=== PATIENT | female | born 1960 | race Caucasian/White ===

== ENCOUNTER 2021-01-27 09:46 | Outpatient (REF) | payer BC, SELFPAY ==
--- NOTE | 2021-01-27 08:30 | PAPFT_PTH ---
PATIENT: Mesha Figueroa LOC: [facility]#:[id number] AGE/SX: 61/F ROOM: RE01/27/[address]: Casandra Young : 1960 BED: DIS: 01/27/2021 SPEC #: [id number] RECD: 01/27/21 13:14 STATUS: ROMA ARMANDO #: [id number] STORM: 01/27/21 08:[address]: Casandra Young DEPT: [facility] Cytology RECD BY: Veda Miramontes ENTERED: 01/27/21 13:14 SP TYPE: PAPFT OTHR DR: Alyssa Ramachandran Tissues: 1 - CX/ENDOCX FOR PAP SMEARS Procedures: PAP THIN PREP/[facility] Screening HPV DNA PROBE Comments: [id number]
[2021-01-27 14:40] LABS: ALT 23 U/L (14-59); AST 16 U/L (15-37); Calculated LDL 108 mg/dL (<100); Cholesterol 196 mg/dL (<200); HDL Cholesterol 48 mg/dL (40-60); Triglyceride 201 mg/dL (<150)
== END 2021-01-27 09:47 | disposition home or self-care (01) ==
LOC: NCHCN 09:46
PROVIDERS: PCP Nurse Practitioner Family; Visit Provider Nurse Practitioner Family
DX: E78.5 Hyperlipidemia, unspecified (principal); Z00.00 Encounter for general adult medical examination without abnormal findings; Z12.4 Encounter for screening for malignant neoplasm of cervix; Z01.419 Encounter for gynecological examination (general) (routine) without abnormal findings; Z11.51 Encounter for screening for human papillomavirus (HPV)
CPT/HCPCS: 80061; 88142; 84450; 84460; 87624

== ENCOUNTER 2022-01-26 14:47 | Outpatient (REF) | payer BC, SELFPAY ==
[2022-01-26 15:43] LABS: HCT 43.6 % (36.0-46.0); HGB 14.5 g/dL (11.2-15.7); MCH 30.5 pg (27.0-33.0); MCHC 33.3 % (32.0-36.0); MCV 92 fL (80-95); MPV 11.1 fL (8.0-11.0); Platelet Count 281 10^3/uL (130-400); RBC 4.75 10^6/uL (3.93-5.22); RDW 12.3 % (11.7-14.6); RDW-SD 41.8 fL; WBC 7.12 10^3/uL (4.4-10.8)
[2022-01-26 15:56] LABS: ALT 29 U/L (14-59); AST 19 U/L (15-37); Albumin 3.6 g/dL (3.4-5.0); Alkaline Phosphatase 63 U/L (46-116); Anion Gap 8.6 mmol/L (3-11); BUN 13 mg/dL (7-18); Bilirubin, Total 0.4 mg/dL (0.2-1.0); CO2 26.4 mmol/L (21.0-32.0); CREATININE 0.9 mg/dL (0.55-1.02); Calcium 8.7 mg/dL (8.5-10.1); Chloride 106 mmol/L (98-107); Glucose 99 mg/dL (74-106); Potassium 4.5 mmol/L (3.5-5.1); Sodium 141 mmol/L (136-145); Total Protein 7.1 g/dL (6.4-8.2)
== END 2022-01-26 14:48 | disposition home or self-care (01) ==
LOC: NCHCN 14:47
PROVIDERS: PCP Nurse Practitioner Family; Visit Provider Nurse Practitioner Family
DX: Z00.00 Encounter for general adult medical examination without abnormal findings (principal); Z12.11 Encounter for screening for malignant neoplasm of colon
CPT/HCPCS: 80053; 85027

== ENCOUNTER 2023-03-07 21:04 | Outpatient (REF) | payer BC, SELFPAY ==
[2023-03-07 21:24] LABS: ALT 35 U/L (14-59); AST 20 U/L (15-37); Albumin 3.7 g/dL (3.4-5.0); Alkaline Phosphatase 68 U/L (46-116); Anion Gap 6.7 mmol/L (3-11); BUN 13 mg/dL (7-18); Bilirubin, Total 0.4 mg/dL (0.2-1.0); CO2 30.3 mmol/L (21.0-32.0); CREATININE 0.9 mg/dL (0.55-1.02); Calcium 8.7 mg/dL (8.5-10.1); Chloride 103 mmol/L (98-107); Estimated GFR 71.83 (mL/min/1.73m2); Glucose 112 mg/dL (74-106); HCT 43.6 % (36.0-46.0); HGB 14.5 g/dL (11.2-15.7); MCH 30.7 pg (27.0-33.0); MCHC 33.3 % (32.0-36.0); MCV 92 fL (80-95); MPV 11.3 fL (8.0-11.0); Platelet Count 290 10^3/uL (130-400); Potassium 3.7 mmol/L (3.5-5.1); RBC 4.72 10^6/uL (3.93-5.22); RDW 12.4 % (11.7-14.6); RDW-SD 42.9 fL; Sodium 140 mmol/L (136-145); Total Protein 7.4 g/dL (6.4-8.2); WBC 6.86 10^3/uL (4.4-10.8)
== END 2023-03-07 21:05 | disposition home or self-care (01) ==
LOC: NCHCN 21:04
PROVIDERS: PCP Nurse Practitioner Family; Visit Provider Nurse Practitioner Family
DX: Z00.00 Encounter for general adult medical examination without abnormal findings (principal)
CPT/HCPCS: 80053; 85027

== ENCOUNTER 2024-03-14 21:14 | Outpatient (REF) | payer BC, SELFPAY ==
[2024-03-14 14:18] LABS: HCT 44.2 % (36.0-46.0); HGB 14.7 g/dL (11.2-15.7); MCH 31.4 pg (27.0-33.0); MCHC 33.3 % (32.0-36.0); MCV 94 fL (80-95); MPV 10.9 fL (8.0-11.0); Platelet Count 294 10^3/uL (130-400); RBC 4.68 10^6/uL (3.93-5.22); RDW 12.4 % (11.7-14.6); RDW-SD 42.9 fL; WBC 6.37 10^3/uL (4.4-10.8)
[2024-03-14 14:32] LABS: ALT 30 U/L (14-59); AST 17 U/L (15-37); Albumin 3.7 g/dL (3.4-5.0); Alkaline Phosphatase 65 U/L (46-116); BUN 18 mg/dL (7-18); Bilirubin, Total 0.38 mg/dL (0.2-1.0); CREATININE 0.9 mg/dL (0.55-1.02); Calcium 8.7 mg/dL (8.5-10.1); Calculated LDL 123 mg/dL (<100); Chloride 106 mmol/L (98-107); Cholesterol 203 mg/dL (<200); Estimated GFR 71.39 (mL/min/1.73m2); Glucose 105 mg/dL (74-106); HDL Cholesterol 55 mg/dL (40-60); Potassium 4.1 mmol/L (3.5-5.1); Sodium 141 mmol/L (136-145); Total Protein 6.9 g/dL (6.4-8.2); Triglyceride 129 mg/dL (<150)
[2024-03-14 14:41] LABS: Hemoglobin A1C 5.5 % (<5.7); Magnesium 2.2 mg/dL (1.8-2.4)
--- OUTSIDE RECORDS SUMMARY | 2024-03-14 21:15 | XMS_ITS | Encounter Summary ---
Author Organization [facility] Address [address] [place] [address] Care Team Providers Care Health Inspector Name Role Phone Unavailable Primary Care Provider Unavailabl e Encounter Details Date Type Department Care Team (Late st Contact Info) Description 12/29/2005 Results Only [facility] - Maple conversion [address] [place] [address] Stephanie Perea PA-C [address] [place] [address] Social History Tobacco Use Types Packs/Day Years Used Date Smoking Tobacco: Never Assessed Sex and Gender Information Value Date Recorded Sex Assigned at Not on file Gender Identity Not on file Sexual Orientation Not on file documented as of this encounter Plan of Treatment Not on file documented as of this encounter Procedures Procedure Name Priority Date/Time Associated Diagnosis Comments CYTOPATHOLOGY Routine 12/29/2005 0:00 EDT documented in this encounter Results * CYTOPATHOLOGY (12/29/2005 0:00 EDT) Pathology Report: CYTOPATHOLOGY REPORT Reports generated via electronic interface contain original data; however they are lacking the format of the original report. Caution should be taken when reading/interpreti ng unformatted reports. Name: ? MESHA FIGUEROA ? Accession #: ? [id number] : ? 1960 (Age: 45) ??F ?Collect Date: ? 12/29/2005 Location: ? [facility] ? Receive Date: ? 01/04/2006 Provider: ?STEPHANIE MAGALLON Copy to: ? Specimen/Source: ?ThinPrep Pap Test, Cervix/Endocervix, processed on [employer] ThinPrep Imaging System, with manual evaluation Last Menstrual Period: ? 12/13/05 Previous Gynecologic Pathology: ? Yes: x 1 Other: ? HPVA - HPV testing requested if ASC-US on the current ThinPrep Pap test. ? SPECIMEN ADEQUACY ? Satisfactory for Evaluation - transformation zone component present GENERAL CATEGORIZATION ? Negative for Intraepithelial Lesion or Malignancy ? Document reviewed and electronically signed by: ? Autumn Breaux, GINA(ASCP) ? Report Date: ??01/09/2006 14:51 End of Report CATHIE DE PAZ 12/29/2005 01/04/2006 Stephanie Perea PA-C PATHOLOGY [facility] [address] [place] [address] documented in this encounter Visit Diagnoses Not on filedocumented in this encounter
--- OUTSIDE RECORDS SUMMARY | 2024-03-14 21:15 | XMS_ITS | Continuity of Care Document ---
Author Organization [facility] Address [address] [place] [address] Care Team Providers Care Appliance Installer Name Role Phone BEBETO JACOBSEN Primary Care Physician Encounter [facility] FIN NBR [id number] Date(s): 03/22/23 - 03/22/[address] [address] [place] Encounter Diagnosis Encounter for screening mammogram for malignant neoplasm of breast(Final) - Discharge Disposition: Home or Self Care Attending Physician: BEBETO JACOBSEN Admitting Physician: BEBETO JACOBSEN Referring Physician: BEBETO JACOBSEN Results Radiology Reports * Exam Date Time Procedure Performing Provider Status 03/22/23 8:13 AM MG Mammo Screening Bilateral Mikey, Luístine; Auth (Verified) Notes: (MG Mammo Screening Bilateral) Reason For Exam: SCREENING MG Mammo Screening Bilateral EXAM DESCRIPTION: MG Mammo Screening Bilateral 03/22/2023 INDICATION: SCREENING RISK FACTOR: The patient may be at increased breast cancer risk based on 1 or more risk factors COMPARISON: 03/15/2022 and 03/23/2021 BREAST DENSITY: There are scattered areas of fibroglandular density. FINDINGS: MLO and CC views were performed with digital breast tomosynthesis. Images were reviewed using computer aided detection. No asymmetry, architectural distortion or suspicious grouping of calcifications to suggest malignancy in either breast. ASSESSMENT: No mammographic evidence of malignancy. Negative. BI-RADS category 1. RECOMMENDATION: Screening mammography in 1 year JOB #: [id number] Final Signed by: Jose Albert MD Signed (Electronic Signature): 03/22/2023 8:39 am Patient Care team information Care Team Personnel Name: BEBETO JACOBSEN Position: No Access Member Role: Primary Care Physician Address: Address: [facility] [address] [place], [place] [address]
--- OUTSIDE RECORDS SUMMARY | 2024-03-14 21:15 | XMS_ITS | Encounter Summary ---
Author Organization [facility] Address [address] [place] [address] Care Team Providers Care Carnallite Plant Operator Name Role Phone Unavailable Primary Care Provider Unavailabl e Encounter Details Date Type Department Care Team (Late st Contact Info) Description 03/07/2012 Results Only [facility] Services - [facility] ([facility]) [address], [place] [address] Vic De Santiago FNP [address] [place], [place] [address] Social History Tobacco Use Types Packs/Day Years Used Date Smoking Tobacco: Never Assessed Sex and Gender Information Value Date Recorded Sex Assigned at Not on file Gender Identity Not on file Sexual Orientation Not on file documented as of this encounter Plan of Treatment Not on file documented as of this encounter Procedures Procedure Name Priority Date/Time Associated Diagnosis Comments PAP TEST- RESULT ONLY Routine 03/07/2012 0:00 EDT documented in this encounter Results * PAP TEST- RESULT ONLY (03/07/2012 0:00 EDT) Pathology Report: CYTOPATHOLOGY REPORT Reports generated via electronic interface contain original data; however they are lacking the format of the original report. Caution should be taken when reading/interpreti ng unformatted reports. Name: ? MESHA FIGUEROA ? Accession #: ? [id number] : ? 1960 (Age: 52) ??F ?Collect Date: ? 03/07/2012 Location: ? [facility] ? Receive Date: ? 03/08/2012 Provider: ?VIC DE SANTIAGO PROCESS MECHANIC Copy to: ? Specimen/Source: ?Pap Test, Cervix/Endocervix, ThinPrep Imaging System with manual evaluation Last Menstrual Period: ? 06/2011 ? SPECIMEN ADEQUACY ? Satisfactory for Evaluation - transformation zone component present GENERAL CATEGORIZATION ? Negative for Intraepithelial Lesion or Malignancy INTERPRETATION ? Reactive cellular changes associated with inflammation present (includes repair). ? Document reviewed and electronically signed by: ? SISSY CHAUDHRY MD ? Report Date: ??03/15/2012 15:49 End of Report CATHIE DE PAZ 03/07/2012 03/08/2012 Vic De Santiago PROCESS MECHANIC PATHOLOGY ORDERABLES CATHIE DE PAZ [address] [place] [address] documented in this encounter Visit Diagnoses Not on filedocumented in this encounter
--- OUTSIDE RECORDS SUMMARY | 2024-03-14 21:15 | XMS_ITS | Encounter Summary ---
Author Organization [facility] Address [address] [place] [address] Care Team Providers Care Roll Up Helper Name Role Phone Mary Ellen Daniel MD Primary Care Provider [phone] Reason for Visit * Reason Onset Date Comments Other 06/22/2015 Encounter Details Date Type Department Care Team (Late st Contact Info) Description 06/22/2015 Telephone [facility] Neurology - [address] [place] [address] Tarsha Bates [address] [place] [address] Other Social History Tobacco Use Types Packs/Day Years Used Date Smoking Tobacco: Never Assessed Sex and Gender Information Value Date Recorded Sex Assigned at Not on file Gender Identity Not on file Sexual Orientation Not on file documented as of this encounter Miscellaneous Notes * Telephone Encounter - Elin Brewer - 09/04/2015 0931 EST error documented in this encounter Plan of Treatment Not on file documented as of this encounter Visit Diagnoses Not on filedocumented in this encounter Care Teams Roll Up Helper Relationship Specialty Start Date End Date Mary Ellen Daniel MD [address] [place] [address] PCP - General 05/12/15 documented as of this encounter
--- OUTSIDE RECORDS SUMMARY | 2024-03-14 21:15 | XMS_ITS | Encounter Summary ---
Author Organization [facility] Address [address] [place] [address] Care Team Providers Care Buckle Coverer Name Role Phone Mary Ellen Daniel MD Primary Care Provider [phone] Encounter Details Date Type Department Care Team (Late st Contact Info) Description 01/19/2016 Results Only [facility] [phone] Cesia Manriquez, MOTOR VEHICLE EXAMINER [address] [facility] [address] [place] [address] Social History Tobacco Use Types Packs/Day Years [...] Diagnosis Comments PAP TEST- RESULT ONLY Routine 01/19/2016 0:00 EDT documented in this encounter Results * PAP TEST- RESULT ONLY (01/19/2016 0:00 EDT) Pathology Report: CYTOPATHOLOGY REPORT Reports generated via electronic interface contain original data; however they are lacking the format of the original report. Caution should be taken when reading/interpreti ng unformatted reports. Name: ? MESHA FIGUEROA ? Accession #: ? [id number] ? : ? 1960 (Age: 55) ??F ?Collect Date: ? 01/19/2016 ? Location: ? [facility] ? Receive Date: ? 01/20/2016 ? Provider: CESIA MANRIQUEZ MOTOR VEHICLE EXAMINER Copy to: ? Final Report SPECIMEN ADEQUACY ? Satisfactory for Evaluation - transformation zone component present GENERAL CATEGORIZATION ? Negative for Intraepithelial Lesion or Malignancy ?? Menstrual/Pregnanc y Status: ??Post Menopausal Hormonal/Contracep tive status: None Other: Additional clinical information: Remote hx - does not recall Specimen/Source: ??Pap Test, Cervix/Endocervix, ThinPrep Imaging System with manual evaluation Document reviewed and electronically signed by: ? GINA Rasmussen(ASCP) ? Report ??Date: 02/01/2016 08:38 HPV with Pap Test ? Date Ordered: ? 02/01/2016 ? Status: ?? Signed Out ?Date Complete: ? 02/03/2016 ? By: ??System Interface ? Date Reported: ? 02/03/2016 ? Interpretation RESULT: Negative for HPV. No E6 or E7 mRNA is detected from HPV types 16,18,31,33,35, 39,45,51,52,56,58, 59,66, and 68 by assistant professor of archaeology mediated amplification. Comments Document reviewed and electronically signed by: ? System Interface ? Report date: 02/03/2016 By the signature above, the attending physician certifies that he/she has personally conducted a gross and/or microscopic examination of the described specimens and rendered or confirmed the above diagnosis. End of Report [facility] 01/19/2016 01/20/2016 Cesia Manriquez APRN PATHOLOGY ORDERAB LES [facility] [address] [place] [address] documented in this encounter Visit Diagnoses Not on filedocumented in this encounter Care Teams Buckle Coverer Relationship Specialty Start Date End Date Mary Ellen Daniel MD [address] [place] [address] PCP - General 05/12/15 documented as of this encounter
--- OUTSIDE RECORDS SUMMARY | 2024-03-14 21:15 | XMS_ITS | Encounter Summary ---
Author Organization [facility] Address [address] [place] [address] Care Team Providers Care Night Cleaner Name Role Phone Unavailable Primary Care Provider Unavailabl e Encounter Details Date Type Department Care Team (Late st Contact Info) Description 08/15/2002 Results Only [facility] - Maple conversion [address] [place] [address] Vic De Santiago FNP [address] [place], [place] [id number] Social History Tobacco Use Types Packs/Day Years Used Date Smoking Tobacco: Never Assessed Sex and Gender Information Value Date Recorded Sex Assigned at Not on file Gender Identity Not on file Sexual Orientation Not on file documented as of this encounter Plan of Treatment Not on file documented as of this encounter Procedures Procedure Name Priority Date/Time Associated Diagnosis Comments CYTOPATHOLOGY Routine 08/15/2002 0:00 EST documented in this encounter Results * CYTOPATHOLOGY (08/15/2002 0:00 EST) Pathology Report: CYTOPATHOLOGY REPORT Reports generated via electronic interface contain original data; however they are lacking the format of the original report. Caution should be taken when reading/interpreti ng unformatted reports. Name: ? MESHA FIGUEROA ? Accession #: ? [id number] : ? 1960 (Age: 42) ??F ?Collect Date: ? 08/15/2002 Location: ? [facility] ? Receive Date: ? 08/19/2002 Provider: ?VIC DE SANTIAGO MANAGED CARE SPECIALIST Copy to: ? Specimen/Source: ?ThinPrep Pap Test, Cervix/Endocervix Last Menstrual Period: ? 07/26/02 Previous Gynecologic Pathology: ? Yes: 1994, normal since Other: ? HPVA - HPV testing requested if ASC-US on the current ThinPrep Pap test. ? SPECIMEN ADEQUACY ? Satisfactory for Evaluation - transformation zone component present GENERAL CATEGORIZATION ? Negative for Intraepithelial Lesion or Malignancy INTERPRETATION ? Shift in saad present suggestive of bacterial vaginosis. ? Document reviewed and electronically signed by: ? Alicia Holloway, SCT(ASCP) ? Report Date: ??08/20/2002 11:35 End of Report CATHIE DE PAZ 08/15/2002 08/19/2002 Vic NELSONP PATHOLOGY ORDERABLES Performing Organization Address City/State/[facility] Co de Phone Number CATHIE DE PAZ [address] [place] [address] documented in this encounter Visit Diagnoses Not on filedocumented in this encounter
--- OUTSIDE RECORDS SUMMARY | 2024-03-14 21:15 | XMS_ITS | Encounter Summary ---
Author Organization [facility] Address [address] [place] [address] Care Team Providers Care Network Support Administrator Name Role Phone Unavailable Primary Care Provider Unavailabl e Encounter Details Date Type Department Care Team (Late st Contact Info) Description 01/08/2007 Results Only [facility] - Maple conversion [address] [place] [address] Vic De Santiago FNP [address] [place], [place] [phone] Social History Tobacco Use Types Packs/Day Years Used Date Smoking Tobacco: Never Assessed Sex and Gender Information Value Date Recorded Sex Assigned at Not on file Gender Identity Not on file Sexual Orientation Not on file documented as of this encounter Plan of Treatment Not on file documented as of this encounter Procedures Procedure Name Priority Date/Time Associated Diagnosis Comments CYTOPATHOLOGY Routine 01/08/2007 0:00 EDT documented in this encounter Results * CYTOPATHOLOGY (01/08/2007 0:00 EDT) Pathology Report: CYTOPATHOLOGY REPORT Reports generated via electronic interface contain original data; however they are lacking the format of the original report. Caution should be taken when reading/interpreti ng unformatted reports. Name: ? MESHA FIGUEROA ? Accession #: ? [id number] : ? 1960 (Age: 46) ??F ?Collect Date: ? 01/08/2007 Location: ? [facility] ? Receive Date: ? 01/10/2007 Provider: ?VIC DE SANTIAGO PHYSICALLY IMPAIRED TEACHER Copy to: ? Specimen/Source: ?ThinPrep Pap Test, Cervix/Endocervix, processed on [employer] ThinPrep Imaging System, with manual evaluation Last Menstrual Period: ? Previous Gynecologic Pathology: ? Yes: remote hx abnormal, no tx-just repeat pap Other: ? HPVA - HPV testing requested if ASC-US on the current ThinPrep Pap test. ? SPECIMEN ADEQUACY ? Satisfactory for Evaluation - transformation zone component present GENERAL CATEGORIZATION ? Negative for Intraepithelial Lesion or Malignancy ? Document reviewed and electronically signed by: ? GINA Carmona(ASCP) ? Report Date: ??01/15/2007 15:28 End of Report CATHIE DE PAZ 01/08/2007 01/10/2007 Vic De Santiago PHYSICALLY IMPAIRED TEACHER PATHOLOGY ORDERABLES Performing Organization Address City/State/[facility] Co de Phone Number CATHIE DE PAZ [address] [place] [address] documented in this encounter Visit Diagnoses Not on filedocumented in this encounter
--- OUTSIDE RECORDS SUMMARY | 2024-03-14 21:15 | XMS_ITS | Encounter Summary ---
Author Organization [facility] Address [address] [place] [address] Care Team Providers Care Night Stocker Name Role Phone Unavailable Primary Care Provider Unavailabl e Encounter Details Date Type Department Care Team (Late st Contact Info) Description 06/19/2001 Results Only [facility] - Maple conversion [address] [place] [address] Vic De Santiago FNP [address] [place], [place] [phone] Social History Tobacco Use Types Packs/Day Years Used Date Smoking Tobacco: Never Assessed Sex and Gender Information Value Date Recorded Sex Assigned at Not on file Gender Identity Not on file Sexual Orientation Not on file documented as of this encounter Plan of Treatment Not on file documented as of this encounter Procedures Procedure Name Priority Date/Time Associated Diagnosis Comments CYTOPATHOLOGY Routine 06/19/2001 0:00 EST documented in this encounter Results * CYTOPATHOLOGY (06/19/2001 0:00 EST) Pathology Report: CYTOPATHOLOGY REPORT Reports generated via electronic interface contain original data; however they are lacking the format of the original report. Caution should be taken when reading/interpreti ng unformatted reports. Name: ? MESHA FIGUEROA ? Accession #: ? [id number] : ? 1960 (Age: 41) ??F ?Collect Date: ? 06/19/2001 Location: ? [facility] ? Receive Date: ? 06/22/2001 Provider: ?VIC NELSONP Copy to: ? Specimen/Source: ?ThinPrep Pap Test, Cervix/Endocervix Last Menstrual Period: ? 06/05/01 Previous Gynecologic Pathology: ? Yes: mild abnormality 1994 ? SPECIMEN ADEQUACY ? Satisfactory for evaluation. GENERAL CATEGORIZATION ? Within Normal Limits ? Document reviewed and electronically signed by: ? GINA Martino(ASCP) ? Report Date: ??07/02/2001 09:23 End of Report CATHIE DE PAZ 06/19/2001 06/22/2001 Vic NELSONP PATHOLOGY ORDERABLES CATHIE DE PAZ [address] [place] [address] documented in this encounter Visit Diagnoses Not on filedocumented in this encounter
--- OUTSIDE RECORDS SUMMARY | 2024-03-14 21:15 | XMS_ITS | Encounter Summary ---
Author Organization [facility] Address [address] [place] [address] Care Team Providers Care Senior Chemical Process Engineer Name Role Phone Unavailable Primary Care Provider Unavailabl e Encounter Details Date Type Department Care Team (Late st Contact Info) Description 01/14/2008 Before PRISM Converted Visit (Maple) [facility] - Maple conversion [address] [place] [address] Vic De Santiago FNP [address] [place], [place] [address] Social History Tobacco Use Types Packs/Day Years Used Date Smoking Tobacco: Never Assessed Sex and Gender Information Value Date Recorded Sex Assigned at Not on file Gender Identity Not on file Sexual Orientation Not on file documented as of this encounter Plan of Treatment Not on file documented as of this encounter Procedures Procedure Name Priority Date/Time Associated Diagnosis Comments CYTOPATHOLOGY Routine 01/14/2008 0:00 EDT documented in this encounter Results * CYTOPATHOLOGY (01/14/2008 0:00 EDT) Pathology Report: CYTOPATHOLOGY REPORT ? Reports generated via electronic interface contain original data; ? however they are lacking the format of the original report. ? Caution should be taken when reading/interpreti ng unformatted reports. ? Name: ? MESHA FIGUEROA ? Accession #: ? [id number] ? : ? 1960 (Age: 47) ??F ?Collect Date: ? 01/14/2008 ? Location: ? [facility] ? Receive Date: ? 01/16/2008 ? Provider: ?VIC YEH ? Copy to: ? Specimen/Source: ?ThinPrep Pap Test, Cervix/Endocervix, processed on [employer] ThinPrep Imaging System, with manual evaluation ? Last Menstrual Period: ? 05/08 ? Other: ? Additional clinical information: Quality Director clinical & treatment hx ? HPVA - HPV testing requested if ASC-US on the current ThinPrep Pap test. ? SPECIMEN ADEQUACY ? Satisfactory for Evaluation ? - transformation zone component present ? GENERAL CATEGORIZATION ? Negative for Intraepithelial Lesion or Malignancy ? Document reviewed and electronically signed by: ? Ping Lopez, CT(ASCP)(IAC) ? Report Date: ??01/22/2008 14:26 ? End of Report ? CATHIE DE PAZ 01/14/2008 01/16/2008 Vic De Santiago PRODUCE CLERK PATHOLOGY ORDERABLES CATHIE DE PAZ [address] [place] [address] documented in this encounter Visit Diagnoses Not on filedocumented in this encounter
--- OUTSIDE RECORDS SUMMARY | 2024-03-14 21:15 | XMS_ITS | Encounter Summary ---
Author Organization [facility] Address [address] [place] [address] Care Team Providers Care Harness Maker Name Role Phone Unavailable Primary Care Provider Unavailabl e Reason for Visit * Reason Onset Date Comments Other 11/28/2012 Encounter Details Date Type Department Care Team (Late st Contact Info) Description 11/28/2012 Telephone [facility] Neurology - [address] [address] Tarsha Bates [address] [place] [address] Other Social History Tobacco Use Types Packs/Day Years Used Date Smoking Tobacco: Never Assessed Sex and Gender Information Value Date Recorded Sex Assigned at Not on file Gender Identity Not on file Sexual Orientation Not on file documented as of this encounter Miscellaneous Notes * Telephone Encounter - Patrizia Petersen - 11/28/2012 1930 EDT Brenda This looks like the wrong patient--can you try and find the right one Thanks A * Telephone Encounter - Elin Brewer - 11/28/2012 1711 EDT Patient calling regarding her legs itching to the point where she scratches until she bleeds. A friend with MS told her that there was an RX to help with this. Please call. documented in this encounter Plan of Treatment Not on file documented as of this encounter Visit Diagnoses Not on filedocumented in this encounter
--- OUTSIDE RECORDS SUMMARY | 2024-03-14 21:15 | XMS_ITS | Encounter Summary ---
Author Organization [facility] Address [address] [place] [address] Care Team Providers Care Powder Coat Painter Name Role Phone Mary Ellen Daniel MD Primary Care Provider [phone] Encounter Details Date Type Department Care Team (Latest Contact Info) Description 01/28/2021 Lab Requisition [facility] Pathology & Laboratory Medicine - [facility] [address] [place] [address] Casandra Young FNP [address] [facility] [address] [place] [phone] Encounter for general adult medical examination without abnormal findings; Encounter for screening for malignant neoplasm of cervix; Encounter for gynecological examination (general) (routine) without abnormal findings Social History Tobacco Use Types Packs/Day Years Used Date Smoking Tobacco: Never Assessed Sex and Gender Information Value Date Recorded Sex Assigned at Not on file Gender Identity Not on file Sexual Orientation Not on file documented as of this encounter Plan of Treatment Not on file documented as of this encounter Procedures Procedure Name Priority Date/Time Associated Diagnosis Comments PAP TEST Today 01/27/2021 8:30 EDT Encounter for general adult medical examination without abnormal findings Encounter for screening for malignant neoplasm of cervix Encounter for gynecological examination (general) (routine) without abnormal findings HPV DNA DETECTION WITH GENOTYPING, PCR Today 01/27/2021 8:30 EDT Encounter for general adult medical examination without abnormal findings Encounter for screening for malignant neoplasm of cervix Encounter for gynecological examination (general) (routine) without abnormal findings documented in this encounter Results * HUMAN PAPILLOMAVIRUS (HPV) DETECTION-HIGH RISK TYPES (01/27/2021 8:30 EDT) HPV other High Risk types, PCR Negative Negative 02/05/2021 14:41 T [facility] Comment:No E6 or E7 mRNA is detected from HPV types 16,18,31,33,35,39,45,51,52,56,58,59,66, and 68 by social media campaign manager mediated amplification. Papanicolaou smear specimen (specimen) CERVIX UTERI STRUCTURE / Unknown 01/27/2021 8:30 EDT 02/04/2021 13:48 EDT Casandra Young MANUFACTURING TECHNOLOGY PROFESSOR MICROBIOLOGY - GENER AL ORDERABLES [facility] [address] [place] [id number] * PAP TEST (01/27/2021 8:30 EDT) Specimens A. Cervix and/or Endocervix , ThinPrep Imaging System with Manual Evaluation 02/05/2021 14:41 T [facility] Specimen Adequacy Satisfactory for Evaluation - transformation zone component present 02/05/2021 14:41 [facility] General Categorization Negative for intraepithelial lesion or malignancy 02/05/2021 14:41 [facility] Attestation . 02/05/2021 14:41 [facility] at 1441 Clinical History See below 02/06/20 14:41 T [facility] HPV The result for the Human Papillomavirus (HPV) Detection-High Risk Types is Negative. No E6 or E7 mRNA is detected from HPV types 16,18,31,33,35,39 ,45,51,52,56,58,5 9,66, and 68 by social media campaign manager mediated amplification.Abby ting was performed on specimen [id number] and was resulted on 02/05/2021 1440 EDT by JOANN, LAB INSTRUMENT RESULTS IN 02/05/2021 14:41 EDT [facility] Performing Lab [facility] 02/05/2021 14:41 EDT [facility] Scanned Images 02/05/2021 14:41 EDT [facility] Papanicolaou smear specimen (specimen) CERVIX UTERI STRUCTURE / Unknown 01/27/2021 8:30 EDT 01/28/2021 15:58 EDT Casandra Young MANUFACTURING TECHNOLOGY PROFESSOR PATHOLOGY ORDERABLES [facility] [address] [place] [address] documented in this encounter Visit Diagnoses Diagnosis Encounter for general adult medical examination without abnormal findings Unspecified general medical examination Encounter for screening for malignant neoplasm of cervix Screening for malignant neoplasm of the cervix Encounter for gynecological examination (general) (routine) without abnormal findings documented in this encounter Care Teams Powder Coat Painter Relationship Specialty Start Date End Date Mary Ellen Daniel MD [address] [place] [address] PCP - General 05/12/15 documented as of this encounter
--- OUTSIDE RECORDS SUMMARY | 2024-03-14 21:15 | XMS_ITS | Clinical Summary ---
Author Organization [facility] Address [address] [place] [address] Care Team Providers Care Dye Machine Operator Name Role Phone Mary Ellen Daniel MD Primary Care Provider [phone] Social History Tobacco Use Types Packs/Day Years Used Date Smoking Tobacco: Never Assessed Sex and Gender Information Value Date Recorded Sex Assigned at Not on file Gender Identity Not on file Sexual Orientation Not on file Plan of Treatment Health Maintenance Due Date Last Done Comments Hepatitis C Screen 1960 RSV Immunization ( o r 60+ Years) (1 - 1-dose 60+ series) 2020 COVID-19 Vaccine ( season) 2024 Care Teams Dye Machine Operator Relationship Specialty Start Date End Date Mary Ellen Daniel MD [address] [place] [address] PCP - General 05/12/15
--- OUTSIDE RECORDS SUMMARY | 2024-03-14 21:15 | XMS_ITS | Referral Summary ---
Author Organization [facility] Address [address] [place] [address] Care Team Providers Care Babbitter Name Role Phone Mary Ellen Daniel MD Primary Care Provider [phone] Social History Tobacco Use Types Packs/Day Years Used Date Smoking Tobacco: Never Assessed Sex and Gender Information Value Date Recorded Sex Assigned at Not on file Gender Identity Not on file Sexual Orientation Not on file Plan of Treatment Not on file Care Teams Babbitter Relationship Specialty Start Date End Date Mary Ellen Daniel MD [address] [place] [address] PCP - General 05/12/15
--- OUTSIDE RECORDS SUMMARY | 2024-03-14 21:15 | XMS_ITS | Encounter Summary ---
Author Organization [facility] Address [address] [place] [address] Care Team Providers Care Roll Weigher Name Role Phone Unavailable Primary Care Provider Unavailabl e Encounter Details Date Type Department Care Team (Late st Contact Info) Description 09/27/2004 Results Only [facility] - [facility] conversion [address] [place] [address] Eliseo Ruiz, SOCIAL AND POLITICAL STUDIES PROFESSOR [address] [place] [id number] Social History Tobacco Use Types Packs/Day Years Used Date Smoking Tobacco: Never Assessed Sex and Gender Information Value Date Recorded Sex Assigned at Not on file Gender Identity Not on file Sexual Orientation Not on file documented as of this encounter Plan of Treatment Not on file documented as of this encounter Procedures Procedure Name Priority Date/Time Associated Diagnosis Comments CYTOPATHOLOGY Routine 09/27/2004 0:00 EST documented in this encounter Results * CYTOPATHOLOGY (09/27/2004 0:00 EST) Pathology Report: CYTOPATHOLOGY REPORT Reports generated via electronic interface contain original data; however they are lacking the format of the original report. Caution should be taken when reading/interpreti ng unformatted reports. Name: ? MESHA FIGUEROA ? Accession #: ? [id number] : ? 1960 (Age: 44) ??F ?Collect Date: ? 09/27/2004 Location: ? [facility] ? Receive Date: ? 09/30/2004 Provider: ?ELISEO RUIZ SOCIAL AND POLITICAL STUDIES PROFESSOR Copy to: ? Specimen/Source: ?ThinPrep Pap Test, Cervix/Endocervix Last Menstrual Period: ? 09/09/04 Other: ? HPVA - HPV testing requested if ASC-US on the current ThinPrep Pap test. ? SPECIMEN ADEQUACY ? Satisfactory for Evaluation - transformation zone component present GENERAL CATEGORIZATION ? Negative for Intraepithelial Lesion or Malignancy INTERPRETATION ? Shift in saad present suggestive of bacterial vaginosis. ? Document reviewed and electronically signed by: ? BAILEY Beth(ASCP) ? Report Date: ??10/05/2004 10:38 End of Report CATHIE DE PAZ 09/27/2004 09/30/2004 Eliseo Ruiz NP PATHOLOGY ORDERABLES CATHIE DE PAZ [address] [place] [address] documented in this encounter Visit Diagnoses Not on filedocumented in this encounter
--- OUTSIDE RECORDS SUMMARY | 2024-03-14 21:15 | XMS_ITS | Encounter Summary ---
Author Organization [facility] Address [address] [place] [address] Care Team Providers Care Associate Director Of Nursing Name Role Phone Unavailable Primary Care Provider Unavailabl e Encounter Details Date Type Department Care Team (Late st Contact Info) Description 12/13/2004 Before PRISM Converted Visit (Maple) [facility] - [facility] conversion [address] [place] [address] Ginny Matamoros MD [address] [place] [address] [phone] Social History Tobacco Use Types Packs/Day Years Used Date Smoking Tobacco: Never Assessed Sex and Gender Information Value Date Recorded Sex Assigned at Not on file Gender Identity Not on file Sexual Orientation Not on file documented as of this encounter Plan of Treatment Not on file documented as of this encounter Visit Diagnoses * Evaluation - Ginny Matamoros MD - 09/02/2009 0957 EST DIVISION OF RHEUMATOLOGY AND CLINICAL IMMUNOLOGY NEW PATIENT EVALUATION - 12/13/2004 December 13, 2004 Janee Love, [facility] [address] [place] [address] Mary Ellen Daniel M.D. [facility] [address] [place] [address] Dear Ms. Love and Dr. Daniel: I had the pleasure of meeting Mesha Figueroa on December 13, 2004. As you know, she is a 45-year-old woman here for evaluation of possible fibromyalgia. Ms. Figueroa reports a four-year history of intermittent arthralgias. The symptoms began insidiously but have progressed and become quite significant over the past several years. She reports full-body fatigue with a ssociated brain fog. She has difficulty with persistent pain and discomfort in the neck, shoulders,and ankle area. The pain seems to be worse after activity but is not relieved by rest. No joint swelling is present currently; however, at one point in time she had some purplish discoloration over the joints of her hands and feet. She also reports persistent upset stomach with nausea and vomiting as well as increasing anxiety. She has a history of anxiety dating back to childhood. She has been taking homeopathic remedies and has experienced some anxiety attacks. The possibility of starting antidepressants has been addressed at your office; however, she is reluctant to take these medications because she does not feel that she is depressed, only that she is anxious. She reports complete limitation in daily activities. 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 Medications include Rhinocort twice a day. She also takes btyg-asf-qdboylf supplements, which include a fibromyalgia supplement and a brain supplement. She takes valerian for anxiety. She is also taking glucosamine and chondroitin. Allergies: She reports no known drug allergies. Social history: She is and has two grown children. 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 She lives alone but has a sister nearby. She smoked one pack per day for 14 years but quit 15 years ago. She has one alcoholic beverage per week. She has no current hobbies but used to enjoy bowling. Past medical history includes asthma, peptic ulcer disease, anemia, and allergic rhinitis. Family history includes gout, osteoporosis, and arthritis in her mother. Her father at age 72 of a myocardial infarction. There is also a history of malignancy in her sister. On review of systems, she has gained about 20 pounds and attributes this to decreased activity and poor eating habits. She complains of increasing fatigue and intermittent hot flashes. Eyes: She has occasional blurry changes when looking to the side with headaches. ENT: She experiences severe headaches, which occur at the base of her neck and sometimes radiate into her anterior forehead. She alsohas dry eyes and occasional dry mouth. Cardiovascular: She has occasional chest discomfort with anxiety, never exertional. Respiratory: She and her sister believe she hyperventilates sometimes duringanxiety attacks. GI: She has frequent diarrhea with irritable bowel symptoms. : She awakens one to two times per night with nocturia. Skin: She bruises easily. She also avoids the sun because of sensitivity and has Raynaud's phenomenon. Psych: She reports decreased enjoyment of daily activities of daily living. She has trouble concentrating and has poor sleep with increasing anxiety. On examination, she is a pleasant woman here with her sister. Blood pressure is 110/68, pulse 80, respiratory rate 14, weight 180, and height 65-1/4 inches. Pain is present in her back and upper shoulders. She rates it as moderate. Eyes: Pupils are equal, round, and react to light. Extraocular movements are intact. Lids and sclerae are unremarkable. Ears: No tophi. There are no oral ulcers. Voiceis within normal limits. Neck: Range of motion is preserved. There is no supraclavicular lymphadenopathy. Chest is clear to auscultation. Cardiac exam reveals a regular rate and rhythm. She has symmetric radial pulses. The abdomen is soft, nontender, and nondistended. Skin: There are no pathologic lesions on extremities, scalp, or trunk. Neurologic: She has 5/5 hand editor dictionary, shoulder abduction, hip flexion, and knee extension. Psych: Affect is flat, but the patient is appropriate and oriented to person, place, and reason for visit. Joint examination: She has preservation of range of motion in the joints of the upper and lower extremities. There is some tenderness in the medial malleolus in the area of the fat pad on the left foot. Myofascial pain points are present. She is most profoundly tender in the upper shoulders, in theocciput, and in the gluteus kevin and greater trochanteric bursae bilaterally. IMPRESSION: 1. Myofascial pain syndrome. The patient does meet criteria for fibromyalgia. 2. Depression, likely exacerbating #1. PLAN: I had a long talk with Ms. Figueroa and her sister regarding her symptoms. I reviewed with herthat she has symptoms consistentwith fibromyalgia, however that fibromyalgia is a name for a group of symptoms and fibromyalgia is often a secondary symptom of other conditions. In her case, it may be the onset of menopause. She does admit to some hot flashes along with increasing anxiety. We reviewed that anxiety may be a form of depression and that she might benefit from further treatment. She admits that she is in counseling and is reluctant to go on antidepressants, but will discuss this further with you at a follow-up appointment, which she will schedule later. She is also sleeping very poorly. I reviewed that sleep is the cornerstone for improving myofascial pain syndrome along with exercise. I encouraged her to participate in a graded exercise program. She might benefit from pool therapy if this is available in her area. I also provided a prescription for trazodone 50 mg, 1/2 to 1 tablet at night. If this medication is effective, she can make arrangements for you to begin prescr ibing this in the future. I reassured her that it is [id number] and used for restorative sleep and that it can safely be taken for long periods of time. No follow-up appointment will be scheduled, but I would be happy to discuss any further concerns you might have regarding management of Ms. Figueroa. Also no laboratories accompanied your letter. I would suggest obtaining a TSH and evaluation for anemia if these laboratories have not recently been obtained. Thank you again for allowing me to participate in the care of Ms. Figueroa. Sincerely, Signed by Ginny Matamoros MD 12/23/2004 12:19 Cameron Calderon MD Ginny Matamoros MD D: - Ginny Matamoros MD A - LW Job ID: Document ID: [id number] cc: Mary Ellen Daniel MD documented in this encounter
== END 2024-03-14 21:15 | disposition home or self-care (01) ==
LOC: NCHCN 21:14
PROVIDERS: PCP Nurse Practitioner Family; Visit Provider Nurse Practitioner Family
DX: E66.9 Obesity, unspecified (principal); R55 Syncope and collapse; Z00.00 Encounter for general adult medical examination without abnormal findings
CPT/HCPCS: 80053; 80061; 85027; 83036; 83735; 84443

== ENCOUNTER 2025-03-20 13:12 | Outpatient (REF) | payer MEDICARE, SELFPAY ==
[2025-03-20 15:18] LABS: Abs Immature Grans 0.02 10^3/uL (0.0-0.06); HCT 42.1 % (36.0-46.0); HGB 14.4 g/dL (11.2-15.7); Immature Grans % 0.3 %; MCH 31.2 pg (27.0-33.0); MCHC 34.2 % (32.0-36.0); MCV 91 fL (80-95); MPV 11.2 fL (8.0-11.0); Platelet Count 286 10^3/uL (130-400); RBC 4.62 10^6/uL (3.93-5.22); RDW 12.1 % (11.7-14.6); RDW-SD 40.3 fL; WBC 6.38 10^3/uL (4.4-10.8)
[2025-03-20 15:32] LABS: ALT 25 U/L (14-59); AST 17 U/L (15-37); Albumin 3.7 g/dL (3.4-5.0); Alkaline Phosphatase 66 U/L (46-116); Anion Gap 5.8 mmol/L (3-11); BUN 12 mg/dL (7-18); Bilirubin, Total 0.5 mg/dL (0.2-1.0); CO2 31.2 mmol/L (21.0-32.0); Calcium 9.0 mg/dL (8.5-10.1); Chloride 105 mmol/L (98-107); Estimated GFR 95.92 (mL/min/1.73m2); Glucose 95 mg/dL (74-106); Potassium 3.8 mmol/L (3.5-5.1); Sodium 142 mmol/L (136-145); Total Protein 6.8 g/dL (6.4-8.2)
== END 2025-03-20 13:13 | disposition home or self-care (01) ==
LOC: NCHCN 13:12
PROVIDERS: PCP Nurse Practitioner Family; Visit Provider Nurse Practitioner Family
DX: Z00.00 Encounter for general adult medical examination without abnormal findings (principal)
CPT/HCPCS: 80053; 85025